=== PATIENT | male | born 2000 | race Caucasian/White ===

== ENCOUNTER 2018-08-25 01:54 | Emergency (ER) | payer OTHER ==
[2018-08-25] MEDS ORDERED: ONDANSETRON 4 MG/2 ML VIAL IVP ONE (02:16)
[2018-08-25] MEDS ORDERED: NS 1,000 ML IV ONE ×2 (02:16→02:31)
--- NOTE | 2018-08-25 02:31 | EDPHY ---
H & P Stated Complaint: N/V SINCE 7P Time Seen by Provider: 08/25/18 02:25 HPI/ROS: Chief Complaint: Nausea vomiting HPI: 17-year-old male began having nausea yesterday afternoon. After dinner he started vomiting has been vomiting every 30 min since. No blood or dark black in his emesis. He has been having some moderate intermittent abdominal cramping. No diarrhea or constipation. Does not have a history of similar episodes in the past. One of his housemates had similar symptoms a week ago. No fevers or chills. No cough. ROS: 10 systems were reviewed and were negative except those elements noted in the HPI. PMH: Denies Social History: No smoking, occasional alcohol, occasional marijuana Family History: non-contributory Physical Exam: Gen: Awake, Alert, No Distress HEENT: Nose: no rhinorrhea Eyes: PERRLA, EOMI Mouth: Dry mucosa Neck: Supple, no JVD Chest: nontender, lungs clear to auscultation Heart: S1, S2 normal, no murmur Abd: Soft, non-tender, no guarding Back: no CVA tenderness, no midline tenderness Ext: no edema, non-tender Skin: no rash Neuro: CN II-XII intact, Sensation grossly intact, Strength 5/5 in bilateral upper and lower extremities - Personal History Current Tetanus Diphtheria and Acellular Pertussis (TDAP): Yes - Medical/Surgical History Hx Asthma: No Hx Chronic Respiratory Disease: No Hx Diabetes: No Hx Cardiac Disease: No Hx Renal Disease: No Hx Cirrhosis: No Hx Alcoholism: No Hx HIV/AIDS: No Hx Splenectomy or Spleen Trauma: No Other PMH: DENIES - Social History Smoking Status: Never smoked Constitutional: Initial Vital Signs Temperature (C) 36.7 C 08/25/18 01:59 Heart Rate 99 08/25/18 01:59 Respiratory Rate 18 08/25/18 01:59 Blood Pressure 117/75 08/25/18 01:59 O2 Sat (%) 97 08/25/18 01:59 O2 Delivery Mode Room Air Allergies/Adverse Reactions: No Known Allergies Allergy (Unverified 08/25/18 02:01) Home Medications: Medication Instructions Recorded Nexium 08/25/18 Ondansetron Odt [Zofran Odt 4 mg 4 mg PO Q4 PRN #10 tab 08/25/18 (*)] Medical Decision Making ED Course/Re-evaluation: A 88-year-old male with gastrointestinal symptoms consistent with gastroenteritis. He is improved after 2 L of normal saline and Zofran. No further vomiting. He is tolerating p. O.. Will discharge with oral Zofran has not patient, follow up with primary care physician at [facility] By [facility]. - Data Points Medications Given: Discontinued Medications Sodium Chloride (Ns) 1,000 mls @ 0 mls/hr IV ONCE ONE; Wide Open PRN Reason: Protocol Stop: 08/25/18 02:17 Last Admin: 08/25/18 02:20 Dose: 1,000 mls Sodium Chloride (Ns) 1,000 mls @ 0 mls/hr IV ONCE ONE; Wide Open PRN Reason: Protocol Stop: 08/25/18 02:32 Last Admin: 08/25/18 03:07 Dose: 1,000 mls Ondansetron HCl (Zofran) 4 mg IVP EDNOW ONE Stop: 08/25/18 02:17 Last Admin: 08/25/18 02:20 Dose: 4 mg Departure - Departure Disposition: Home, Routine, Self-Care Clinical Impression: Acute gastroenteritis Condition: Good Instructions: Gastroenteritis (ED) Additional Instructions: You may take Zofran as needed for nausea vomiting. Make sure to drink plenty of fluids, Pedialyte is the best. Follow up with [facility] in 2-3 days for further evaluation. [facility]: [facility]. [Clinic] - As per Instructions Prescriptions: Ondansetron Odt [Zofran Odt 4 mg (*)] 4 mg PO Q4 PRN #10 tab PRN Reason: nausea
[2018-08-25 05:53] VITALS: BP 120/69
[2018-08-25] MEDS ORDERED: ONDANSETRON DISINTEGRATING 4 MG TAB PO ONE (06:02)
== END 2018-08-25 05:45 | disposition home or self-care (01) ==
DX: K52.9 Noninfective gastroenteritis and colitis, unspecified (principal); E86.9 Volume depletion, unspecified
CPT/HCPCS: 96374; J2405